=== PATIENT | female | born 1995 | race Caucasian/White ===

== ENCOUNTER 2017-01-13 15:40 | Emergency (ER) | payer MEDICAID, OTHER ==
[~2017-01-13] VITALS: Ht 160 cm; Wt 79.6 kg
[~2017-01-13 15:40] MED LIST: Docusate Sod/Senna PO; NAPR550 PO; PERC5TAB12 PO; PRENCAP6 PO; ZITH250T PO
[2017-01-13 15:44] VITALS: BP 130/76; PULSE 80; RESP 16; TEMP 98.6; O2SAT 98
[2017-01-13] MEDS ORDERED: PENI250T PO (16:48)
--- NOTE | 2017-01-13 16:48 | PD ---
HPI Chief Complaint: Oral / Dental Pain or Problem Time Seen by Provider: 16:45 Travel History International Travel<30 days: No Contact w/Intl Traveler<30days: No Traveled to known affect area: No History of Present Illness HPI 21-year-old female with chief complaint of gum swelling and pain 1 week. Patient denies fever or chills. She reports history periodontal disease and receding gums. Symptoms severity mild. No aggravating or alleviating factors. PFSH Past Medical History Arthritis: Yes (RHUEMATOID) Bipolar Disorder: Yes Weight (Kg): 3 Depression: Yes Diminished Hearing: No Psychiatric: Yes (ODD) Immunizations Current: Yes Tetanus Vaccination: Never Vaccinated Influenza Vaccination: No ?: Not : 2 Para: 1 Miscarriage: 1 Past Surgical History Appendectomy: No Section: Yes (3 WEEKS AGO) Cholecystectomy: No Gynecologic Surgery: Yes () Social History Alcohol Use: Yes (COUPLE TIMES PER MONTH) Tobacco Use: Yes (1PPD) Substance Use: Yes (MARJUANA, TRIPLE C'S) Allergies-Medications (Allergen,Severity, Reaction): Coded Allergies: Prozac (Verified Allergy, Severe, Confusion, 01/13/17) Fluoxetine (Verified Allergy, Intermediate, MAKES HER FEEL "SUICIDAL", 01/13) *MDRO Multi-Drug Resistant Organism (Unverified Allergy, Unknown, 01/13/17) ESBL Escherichia coli 2013 Reported Meds & Prescriptions Reported Meds & Active Scripts Active No Active Prescriptions or Reported Medications Review of Systems Except as stated in HPI: all other systems reviewed are Neg General / Constitutional: No: Fever Eyes: No: Visual changes HENT: No: Headaches Cardiovascular: No: Chest Pain or Discomfort Physical Exam Narrative GENERAL: Well-nourished, well-developed patient. SKIN: Focused skin assessment warm/dry. HEAD: Normocephalic. EYES: No scleral icterus. No injection or drainage. MOUTH: Widespread gum erythema and mild swelling. NECK: Supple, trachea midline. No JVD or lymphadenopathy. CARDIOVASCULAR: Regular rate and rhythm without murmurs, gallops, or rubs. RESPIRATORY: Breath sounds equal bilaterally. No accessory muscle use. GASTROINTESTINAL: Abdomen soft, non-tender, nondistended. MUSCULOSKELETAL: No cyanosis, or edema. BACK: Nontender without obvious deformity. No CVA tenderness. Data Data Last Documented VS Vital Signs Date Time Temp Pulse Resp B/P Pulse Ox O2 Delivery O2 Flow Rate FiO2 01/13/17 15:44 98.6 80 16 130/76 98 MDM Medical Decision Making Medical Screen Exam Complete: Yes Emergency Medical Condition: Yes Differential Diagnosis Periodontal disease, dental caries, dental abscess Narrative Course 21-year-old female with chief complaint of gum swelling and pain. physical exam is reassuring. Patient we put on oral penicillin and instructed to follow-up with dentist. Diagnosis Primary Impression: Periodontal disease Referrals: Dentist Additional Instructions: Take the antibiotics as prescribed. Follow-up with dentist. Scripts Penicillin V Potassium 250 Mg [id number] Mg PO Q6H #28 TAB Prov:Danni Espinal 01/13/17 Disposition: 01 DISCHARGE HOME Condition: Stable Danni Espinal Jan 13, 2017 16:48
== END 2017-01-13 16:55 | disposition home or self-care (01) ==
LOC: PHED 15:40 → PHEFT 16:55
DX: K05.6 Periodontal disease, unspecified (principal); F17.210 Nicotine dependence, cigarettes, uncomplicated; F12.90 Cannabis use, unspecified, uncomplicated
CPT/HCPCS: 99283

== ENCOUNTER 2017-01-22 18:30 | Emergency (ER) | payer MEDICAID ==
[~2017-01-22 18:30] MED LIST changes: -Docusate Sod/Senna PO; -NAPR550 PO; +PENI250T PO; -PERC5TAB12 PO; -PRENCAP6 PO; -ZITH250T PO
[2017-01-22 18:41] VITALS: BP 140/85; PULSE 88; RESP 20; TEMP 98.7; O2SAT 97
--- NOTE | 2017-01-22 19:15 | PD ---
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 Her last missed her period ended around 4- 5 days ago. She does not usually have irregularities menstrual period. Denies any fever. No instruments were used during the intercourse such as dildos. She does not have any vaginal pain, her only pain is in the uterus. She does have a history of depression and bipolar disorder. 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 The patient was in recently for a toothache and was given penicillin. She has not been taking penicillin as directed, she did not take any yesterday. The patient does have frequency and urgency without any dysuria. She does have a history of frequent urinary tract infections. PFSH Past Medical History Arthritis: Yes (RHUEMATOID) Bipolar Disorder: Yes Weight (Kg): 3 Depression: Yes Diminished Hearing: No Psychiatric: Yes (ODD) Immunizations Current: Yes ?: Not : 2 Para: 1 Miscarriage: 1 Past Surgical History Appendectomy: No Section: Yes Cholecystectomy: No Gynecologic Surgery: Yes () Social History Alcohol Use: Yes (NIGHTLY) Tobacco Use: Yes (1PPD) Substance Use: Yes (DENIES AT PRESENT) Allergies-Medications (Allergen,Severity, Reaction): Coded Allergies: Prozac (Verified Allergy, Severe, Confusion, 01/22/17) Fluoxetine (Verified Allergy, Intermediate, MAKES HER FEEL "SUICIDAL", ) *MDRO Multi-Drug Resistant Organism (Unverified Allergy, Unknown, 01/22/17) ESBL Escherichia coli 2013 Reported Meds & Prescriptions Reported Meds & Active Scripts Active Penicillin V Potassium 250 Mg Tab 250 Mg PO Q6H Review of Systems Except as stated in HPI: all other systems reviewed are Neg Physical Exam Narrative GENERAL: The patient is alert, oriented 3 in no apparent distress. She does not appear anemic. Her vital signs are normal. SKIN: Focused skin assessment warm/dry. No skin rashes noted. HEAD: Atraumatic. Normocephalic. EYES: Pupils equal and round. No scleral icterus. No injection or drainage. ENT: No nasal bleeding or discharge. Mucous membranes pink and moist. NECK: Trachea midline. No JVD. CARDIOVASCULAR: Regular rate and rhythm. No murmur appreciated. RESPIRATORY: No accessory muscle use. Clear to auscultation. Breath sounds equal bilaterally. GASTROINTESTINAL: Abdomen soft, non-tender, nondistended. Hepatic and splenic margins not palpable. No flank tenderness is present. MUSCULOSKELETAL: No obvious deformities. No clubbing. No cyanosis. No edema. NEUROLOGICAL: Awake and alert. No obvious cranial nerve deficits. Motor grossly within normal limits. Normal speech. PSYCHIATRIC: The patient appears very anxious; insight and judgment normal. GENITOURINARY: Normal external genitalia without lesions or erythema. Vaginal vault with a small amount of dark blood and no other drainage. No lacerations are seen within the vault Cervical os was closed with minimal dark bloody drainage. There is minimal cervical motion tenderness. Uterus nontender and nonenlarged. Bilateral adnexa nontender without masses. Data Data Last Documented VS Vital Signs Date Time Temp Pulse Resp B/P Pulse Ox O2 Delivery O2 Flow Rate FiO2 01/22/17 18:41 98.7 88 20 140/85 97 Orders Ed Urine Pregnancytest Poc (01/22/17 19:16) Urinalysis - C+S If Indicated (01/22/17 19:37) Labs Laboratory Tests Test 01/22/17 18:55 Urine Collection Type VOIDED Urine Color DARK-YELLOW Urine Turbidity SLIGHT Urine pH 6.0 Urine Specific [place] 1.035 Urine Protein 30 mg/dL Urine Glucose (UA) NEG mg/dL Urine Ketones TRACE mg/dL Urine Occult Blood LARGE Urine Nitrite NEG Urine Bilirubin NEG Urine Leukocyte Esterase NEG Urine RBC 25-49 /hpf Urine WBC 6-8 /hpf Urine Squamous Epithelial 6-8 /hpf Cells Urine Bacteria FEW /hpf Urine Mucus FEW /lpf Microscopic Urinalysis Comment CULT NOT INDICATED MDM Medical Decision Making Medical Screen Exam Complete: Yes Emergency Medical Condition: Yes Medical Record Reviewed: Yes Interpretation(s) The [id number] urine test is negative. The urine was a voided urine and the patient is vaginally bleeding, dark yellow color, slight turbidity with specific gravity 1.035 and trace ketones and 30 protein and large occult blood and 25-49 red cells with 6-8 white cells and few bacteria. Differential Diagnosis Vaginal vault laceration, dysfunctional uterine bleeding, ectopic , Narrative Course The patient does have urinary symptoms of frequency and urgency as well as a urine that shows 6-8 white cells. The blood in the urine is likely from her vaginal bleeding. The vaginal bleeding appears as dysfunctional uterine bleeding, she is not and there is no vault laceration. The bleeding comes from the cervix. Diagnosis Primary Impression: Dysfunctional uterine bleeding Additional Impressions: Cystitis Mild dehydration Additional Instructions: The antibiotic is one tablet twice daily for 7 days. Follow-up with your nurse practitioner with regard to the vaginal bleeding.The urine shows that you are slightly dehydrated and you need to increase your oral intake of fluids. Med/Other Pt SpecificInfo: Prescription(s) given Scripts Nitrofurantoin Monohydrate Macrocrystals (Macrobid)100 Mg [id number] Mg PO BID 7 Days Ref 0 Prov:Frandy Orantes MD 01/22/17 Disposition: 01 DISCHARGE HOME Condition: Stable Frandy Orantes MD Jan 22, 2017 19:15
[2017-01-22 20:15] LABS: BLOOD, URINE LARGE (NEG); GLUCOSE,URINE NEG (NEG); KETONE, URINE TRACE mg/dL (NEG); NITRITE,URINE NEG (NEG)
[2017-01-22 20:32] LABS: METHOD OF COLLECTION VOIDED; MUCUS URINE FEW /lpf (OCC); URINE COLOR DARK-YELLOW (YELLW/STRAW)
[2017-01-22 20:33] LABS: BACTERIA, URINE FEW /hpf; COMMENT (UR) CULT NOT INDICATED; CULTURE IF INDICATED CULT NOT INDICATED
[2017-01-22] MEDS ORDERED: MACR100C2 PO (20:52)
[2017-01-22] MEDS ORDERED: NITROFURANTOIN MONOHYD MACROCR 100 MG CAP PO ONE (21:00)
[2017-01-22 21:06] VITALS: BP 130/78
== END 2017-01-22 21:09 | disposition home or self-care (01) ==
LOC: PHED 18:30
DX: N93.8 Other specified abnormal uterine and vaginal bleeding (principal); N30.90 Cystitis, unspecified without hematuria; E86.0 Dehydration; F17.200 Nicotine dependence, unspecified, uncomplicated; Z86.59 Personal history of other mental and behavioral disorders; Z87.39 Personal history of other diseases of the musculoskeletal system and connective tissue
CPT/HCPCS: 81001; 84703; 99283